=== PATIENT | male | born 1975 | race Caucasian/White ===

== ENCOUNTER 2022-09-24 02:20 | Day surgery (SDC) | payer BC, SELFPAY ==
[2022-09-08 14:03] VITALS: BMI 27.5
--- NOTE | 2022-09-23 13:06 | P.HP_ITS ---
History of Present Illness History of Present Illness Consent: Risks, benefits, and alternatives have been discussed and questions answered. Patient agrees to proceed with procedure. Chief complaint: neoplasm screening Narrative: Modesto Gonzalez is a 46 year old male referred for colon cancer screening. Review of Systems Review of Systems: All systems reviewed & are unremarkable except as noted in HPI and below [facility] Social History Social History Years smoked: 5 Smoking status: Former smoker Tobacco type: cigarettes Alcohol intake: current Drinks per week: 12 Substance use: current Substance use type: marijuana Other substance usage details: marijuana 4 days/week Living arrangements: with family Spiritual care concerns: No Meds Home Medications and Allergies Home Medications Medication Instructions Recorded Confirmed Type hydroxyzine HCl 25 mg tablet 25 mg PO DAILY PRN Itching 09/08/22 09/08/22 History lisinopril 20 mg tablet 20 mg PO DAILY 09/08/22 09/08/22 History valacyclovir 1 gram tablet 1,000 mg PO BID PRN Cold Sores 09/08/22 09/08/22 History Allergies Allergy/AdvReac Type Severity Reaction Status Date / Time No Known Allergies Allergy Verified 09/24/22 06:15 Exam Const: General: alert Orientation/consciousness: patient oriented x3 Resp: Auscultation: clear to auscultation bilaterally Cardio: Rhythm: regular rhythm GI: GI Palp: Yes Soft to palpation and No Tenderness to palpation present (GI) Neuro: General: patient oriented x3 Assessment and Plan Assessment and plan (1) Colon cancer screening: Code(s): Z12.11 - Encounter for screening for malignant neoplasm of colon Status: Acute Assessment and Plan: Colonoscopy with possible biopsy or polypectomy or cautery or injection of substances.
[2022-09-24 06:16] VITALS: BP 127/84; PULSE 71; RESP 18; TEMP 36.6; O2SAT 100
[2022-09-24] MEDS: LACTATED RINGERS 1,000 ML 150 ML IV CONT (06:25)
--- NOTE | 2022-09-24 06:33 | SUR.PREOP ---
ANESTHESIA MADE AWARE OF PT'S WATER INTAKE OF 4 OUNCES AT 0515 THIS AM, NO NEW ORDERS.
--- NOTE | 2022-09-24 07:05 | WPDANESEPPF ---
Anes - Initial Pre Proc Eval Procedure: Operation Date: 09/24/22 07:30 Proposed Procedures p Screening Colonoscopy - Oscar Montes De Oca MD Date/Time: 09/24/22 07:05 Surgeon: Oscar Montes De Oca MD Pre Op Diagnosis: neoplasm screening Patient Data Age: 46 Gender: M Height: 1.68 m Weight: 74.5 kg Last Vital Signs Temp 36.6 C 09/24/22 06:16 Pulse 71 09/24/22 06:16 Resp 18 09/24/22 06:16 BP 127/84 09/24/22 06:16 Pulse Ox 100 09/24/22 06:16 O2 Del Method Room Air 09/24/22 06:16 Allergies Allergy/AdvReac Type Severity Reaction Status Date / Time No Known Allergies Allergy Verified 09/24/22 06:15 Home Medications Medication Instructions Recorded Confirmed Type hydroxyzine HCl 25 mg tablet 25 mg PO DAILY PRN Itching 09/08/22 09/08/22 History lisinopril 20 mg tablet 20 mg PO DAILY 09/08/22 09/08/22 History valacyclovir 1 gram tablet 1,000 mg PO BID PRN Cold Sores 09/08/22 09/08/22 History Patient hx anesthesia problems: none Family hx anesthesia problems: none Results Review: All pre-operative results and documents have been reviewed as part of the pre-operative evaluation. COUNTS INCLUDE 234 BEDS AT [facility] Past Medical History Medical History (Updated 09/24/22 @ 07:08 by Darnell Iyer MD) Anxiety Chronic GERD Depression HTN (hypertension) Overweight (BMI 25.0-29.9) Social History Social History Years smoked: 5 Smoking status: Former smoker Tobacco type: cigarettes Alcohol intake: current Drinks per week: 12 Substance use: current Substance use type: marijuana Other substance usage details: marijuana 4 days/week Living arrangements: with family Spiritual care concerns: No Anes - Eval Final PreProcedure Day of Procedure 09/24/22 07:05 Patient weight: overweight Heart: regular rate and rhythm Lungs: clear to auscultation and normal air movement Airway: Mallampati scale class II Neurological: alert and oriented Last oral intake: >/= 8 hours ASA classification: II Emergent: no Anesthetic plan: proceed Anesthesia type and monitoring: general GIVS Results Review: All pre-operative results and documents have been reviewed as part of the pre-operative evaluation. Informed Consent: The patient's anesthetic plan and its attendant risks and benefits were discussed with the patient/family/POA. Questions were solicited and answers provided to the satisfaction of the patient/family/POA.
[2022-09-24 07:38] VITALS: BP 99/61; PULSE 64; RESP 15; O2SAT 97
[2022-09-24 07:48] VITALS: BP 102/66; PULSE 60; RESP 12; O2SAT 100
[2022-09-24 07:58] VITALS: BP 122/72; PULSE 65; RESP 12; O2SAT 100
== END 2022-09-24 08:20 | disposition home or self-care (01) ==
PROVIDERS: PCP Nurse Practitioner Family; Visit Provider Internal Medicine Gastroenterology
PROC: 0DJD8ZZ Inspection of Lower Intestinal Tract, Via Natural or Artificial Opening Endoscopic (ICD-10-PCS; CPT 45378; principal; 2022-09-24 07:30)
DX: Z12.11 Encounter for screening for malignant neoplasm of colon (principal); K64.8 Other hemorrhoids; I10 Essential (primary) hypertension; Z87.891 Personal history of nicotine dependence; F12.90 Cannabis use, unspecified, uncomplicated
CPT/HCPCS: 45378; J2704; J7120

== ENCOUNTER 2024-06-25 07:37 | Outpatient (CLI) | payer BC, SELFPAY ==
--- NOTE | ~2024-06-25 | XR_ITS ---
XR knee RT 3V DATE: 06/25/2024 08:01 INDICATION: Bilateral knee pain TECHNIQUE: AP and lateral standing views, sunrise view COMPARISON: None FINDINGS: There is slight periarticular spurring of the patella. Joint spaces appear well preserved. No radiopaque intra-articular loose body or chondrocalcinosis. Mild suprapatellar knee joint effusion. No fracture or dislocation. No periosteal reaction or bone destruction. IMPRESSION: Mild suprapatellar knee joint effusion Slight patellofemoral osteoarthritis Reviewed, dictated and finalized at location A. [employer]
--- NOTE | ~2024-06-25 | XR_ITS ---
XR knee LT 3V DATE: 06/25/2024 08:01 INDICATION: Bilateral knee pain TECHNIQUE: AP and lateral standing views, sunrise view COMPARISON: None FINDINGS: There is slight periarticular spurring of the patella. Knee joint spaces are relatively preserved. No radiopaque intra-articular loose body or chondrocalcin osis. No fracture, dislocation, periosteal reaction or bone destruction. No joint effusion. IMPRESSION: Slight patellofemoral osteoarthritis Reviewed, dictated and finalized at location A. [employer]
== END 2024-06-25 07:38 | disposition home or self-care (01) ==
LOC: MICIMG 07:38
PROVIDERS: PCP Nurse Practitioner Family
DX: M25.461 Effusion, right knee (principal); M17.0 Bilateral primary osteoarthritis of knee
CPT/HCPCS: 73562